=== PATIENT | male | born 1990 | race Caucasian/White ===

== ENCOUNTER 2020-02-13 17:31 | Emergency (ER) | payer SELFPAY ==
[~2020-02-13] VITALS: Ht 185.4 cm; Wt 92.1 kg
[2020-02-13 17:35] VITALS: Ht 185.4 cm; Wt 92.1 kg
[2020-02-13 20:37] VITALS: BP 158/68
== END 2020-02-13 20:37 | disposition home or self-care (01) ==
LOC: ED 17:31
DX: S13.4XXA Sprain of ligaments of cervical spine, initial encounter (principal); S43.401A Unspecified sprain of right shoulder joint, initial encounter; S23.3XXA Sprain of ligaments of thoracic spine, initial encounter; S20.211A Contusion of right front wall of thorax, initial encounter; S09.90XA Unspecified injury of head, initial encounter; V29.40XA Motorcycle driver injured in collision with unspecified motor vehicles in traffic accident, initial encounter; Y93.55 Activity, bike riding; Y92.413 State road as the place of occurrence of the external cause; Y99.8 Other external cause status
CPT/HCPCS: 72072; J1885; J2270

== ENCOUNTER 2020-10-15 21:54 | Emergency (ER) | payer OTHER ==
[~2020-10-15] VITALS: Ht 182.9 cm; Wt 86.2 kg
[2020-10-15 21:55] VITALS: BP 137/83
== END 2020-10-15 22:11 | disposition home or self-care (01) ==
LOC: ED 21:54
DX: Z02.89 Encounter for other administrative examinations (principal)